=== PATIENT | female | born 1985 | race Hispanic/Latino ===

== ENCOUNTER → 2020-06-16 | Outpatient (CLI) | payer OTHER ==
[~2020-06-16] MED LIST: ALBU0.63 IH; ALLERGY SHOTS INJ; CETI10TA57 PO; DIPH25TA22 PO; LEVO75TA10 PO; METF500S7 PO; MONT10TA26 PO; PRAV40TA3 PO; SERT100T12 PO
== END | disposition home or self-care (01) ==
LOC: RAH 14:17
PROVIDERS: ATTEND Obstetrics & Gynecology
DX: N85.01 Benign endometrial hyperplasia (principal); N83.292 Other ovarian cyst, left side; N83.291 Other ovarian cyst, right side
CPT/HCPCS: 76830

== ENCOUNTER 2021-05-08 08:40 | Day surgery (SDC) | payer OTHER ==
[~2021-05-08] VITALS: Ht 154.9 cm; Wt 98.4 kg
[2021-05-08] VITALS (8 sets, daily range): BP systolic 114–126; BP diastolic 43–63
[~2021-05-08 08:40] MED LIST changes: +0.9%NACL 1000ML 1,000 ML IV ONE; -MONT10TA26 PO; +MONT10TA32 PO; +OMEP40CA21 PO; +SERT-440 PO; -SERT100T12 PO; +ZOLP10TA2 PO
[2021-05-08] MEDS ORDERED: PROPOFOL 10 MG/ML 20ML VIAL IV ONE ×2 (12:39→12:57)
[2021-05-08] MEDS ORDERED: MIDAZOLAM HCL 1 MG/ML 2ML VIAL ONE ×2 (12:39→12:56)
[2021-05-08] MEDS ORDERED: LIDOCAINE HCL 1% 20 ML VIAL ONE (12:40)
[2021-05-08] MEDS ORDERED: EPHEDRINE SULFATE 50 MG/ML AMPULE ONE (12:59)
== END 2021-05-08 13:55 | disposition home or self-care (01) ==
LOC: ENDO 08:40 → DAH 08:40 → ENDO 13:55
PROVIDERS: ATTEND Internal Medicine
DX: Z15.09 Genetic susceptibility to other malignant neoplasm (principal); Z20.822 Contact with and (suspected) exposure to COVID-19; K21.00 Gastro-esophageal reflux disease with esophagitis, without bleeding; K44.9 Diaphragmatic hernia without obstruction or gangrene; K31.89 Other diseases of stomach and duodenum; K29.50 Unspecified chronic gastritis without bleeding; E03.9 Hypothyroidism, unspecified; E78.5 Hyperlipidemia, unspecified; F43.10 Post-traumatic stress disorder, unspecified; F41.9 Anxiety disorder, unspecified; E11.9 Type 2 diabetes mellitus without complications; F32.9 Major depressive disorder, single episode, unspecified; Z79.84 Long term (current) use of oral hypoglycemic drugs; Z98.890 Other specified postprocedural states; Z80.0 Family history of malignant neoplasm of digestive organs; Z79.899 Other long term (current) drug therapy
CPT/HCPCS: 36415; 43239; 45378; 84703; 87635; 88305; 88342; A4215 ×2; A4221; A4222; A4223; A4606; A4620; A4657; A4663; C9803; J2250 ×2; J2704 ×2; J3490; J7030

== ENCOUNTER → 2021-09-24 | Outpatient (CLI) | payer OTHER ==
[~2021-09-24] MED LIST changes: -0.9%NACL 1000ML 1,000 ML IV ONE; +MONT-39 PO; -MONT10TA32 PO
== END | disposition home or self-care (01) ==
LOC: ICE 08:02
PROVIDERS: ATTEND Internal Medicine Cardiovascular Disease
DX: Z20.822 Contact with and (suspected) exposure to COVID-19 (principal)
CPT/HCPCS: 87635; C9803

== ENCOUNTER → 2022-09-20 | Outpatient (CLI) | payer OTHER ==
[~2022-09-20] MED LIST changes: -METF500S7 PO; +METF500S9 PO
== END | disposition home or self-care (01) ==
LOC: SLP 20:09
PROVIDERS: ATTEND Family Medicine
DX: G47.33 Obstructive sleep apnea (adult) (pediatric) (principal)
CPT/HCPCS: 95811

== ENCOUNTER → 2024-10-18 | Outpatient (CLI) | payer OTHER ==
--- NOTE | 2024-10-18 16:12 | HMCIMG ---
US TRANSVAGINAL NON-OB HISTORY: Abnormal uterine bleeding COMPARISON: None TECHNIQUE: Endovaginal pelvic ultrasound study was performed. FINDINGS: The uterus measures 7.3 x 4.4 x 4.7 cm. The right ovary measures 3.3 x 2.1 x 2.1 cm. The left ovary measures 3.1 x 2.4 x 2.4 cm. Flow is seen in both ovaries. Nabothian cysts are seen. Ovarian follicles are seen. Endometrial thickness is 5 mm. No free fluid is seen in the cul-de-sac. IMPRESSION: 1. No adnexal mass is seen.
== END | disposition home or self-care (01) ==
LOC: RAH 15:00
PROVIDERS: ATTEND Obstetrics & Gynecology
DX: N88.8 Other specified noninflammatory disorders of cervix uteri (principal); N93.9 Abnormal uterine and vaginal bleeding, unspecified; R93.89 Abnormal findings on diagnostic imaging of other specified body structures
CPT/HCPCS: 76830